=== PATIENT | male | born 1945 | race Caucasian/White ===

== ENCOUNTER 2016-11-02 14:06 | Emergency (ER) | payer OTHER ==
[~2016-11-02] VITALS: Ht 177.8 cm; Wt 77.1 kg
[~2016-11-02 14:06] MED LIST: CHILDREN'S ASPI81 M1 PO; CIPRO 500MG TA500 MG PO; CRESTOR40 M2 PO; FLOMAX0.4 M1 PO; METOPROLOL TART25 M1 PO; MYSOLINE250 M1 PO; NORVASC5 M1 PO; PYRIDIUM200 MG PO
[2016-11-02] MEDS ORDERED: FUROSEMIDE20 M1 PO (15:05)
[2016-11-02] MEDS ORDERED: FINASTERIDE5 M1 PO (15:06)
--- NOTE | 2016-11-02 15:17 | ED HEAD/FACIAL INJ COMPLAINT ---
History of Present Illness General Chief Complaint: Fall Stated Complaint: S/P FALL MERCER Source: patient, family, old records Exam Limitations: no limitations Vital Signs & Intake/Output Vital Signs & Intake/Output Vital Signs Date Time Temp Pulse Resp B/P B/P Pulse O2 O2 Flow FiO2 Mean Ox Delivery Rate 11/02 1418 97.6 60 20 138/74 99 Room Air Allergies Coded Allergies: MDX - Simvastatin (From ZOCOR) (UNKNOWN 03/14/14) Reconcile Medications Amlodipine Besylate (Norvasc) 5 MG TABLET 1 TAB PO DAILY HTN (Reported) Aspirin (Children's Aspirin) 81 MG TAB.CHEW 1 TAB PO DAILY HEART HEALTH ( Reported) Ciprofloxacin HCl (Cipro) 250 MG TABLET 1 TAB PO BID URINARY TRACT INFECTION Finasteride 5 MG TABLET 1 TAB PO DAILY PROSTATE (Reported) Furosemide 20 MG TABLET 1 TAB PO DAILY WATER RETENTION (Reported) Metoprolol Tartrate 25 MG TABLET 1 TAB PO DAILY HTN (Reported) Primidone (Mysoline) 250 MG TABLET 1 TAB PO DAILY ANTICONVULSIVE (Reported) Rosuvastatin Calcium (Crestor) 40 MG TABLET 1 TAB PO DAILY CHOLESTEROL ( Reported) Tamsulosin HCl (Flomax) 0.4 MG CAP.ER.24H 1 CAP PO DAILY PROSTATE (Reported) Triage Note: PT TO ED C/O HEADACHE. PT IS S/P FALL THIS AFTERNOON. 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 + HEADSTRIKE, - LOC. ALSO C/O NECK AND LEFT SHOULDER PAIN. DECLINGING MEDS IN TRIAGE. PT TAKES 81MG ASA DAILY. Triage Nurses Notes Reviewed? yes HPI: Patient states that he was walking to burr picker his phone which was ringing when he lost his balance and fell backwards. Patient hit his head on the ground. There was no loss of consciousness. Patient had a headache that is slowly resolving. The headache is in the occipital area and is throbbing in nature. At its worst it was 7 out of 10 and is currently a 4 out of 10. Patient denies any blurry vision, nausea or vomiting. Patient states that approximately 2 hours after the fall he began to get an ache in his neck. The pain is constant. The pain increases with movement. There is no radiation. He rates that pain as a 3 out of 10. Patient states that he fell 2 weeks ago and landed on his left shoulder. His shoulder pain was getting better but the fall exacerbated today. The pain is sharp in nature. The pain increased with movement of his left arm. There is no radiation. He rates that pain as a 6 out of 10. Past History Travel History Traveled to [place] past 21 day No Medical History Any Pertinent Medical History? see below for history Neurological: CVA Cardiovascular: myocardial infarction, heart valve replacement Surgical History Surgical History: non-contributory Psychosocial History What is your primary language Mongolian Tobacco Use: Never used ETOH Use: denies use Illicit Drug Use: denies illicit drug use Family History Hx Contributory? No Review of Systems Review of Systems Constitutional: Reports: no symptoms. EENTM: Reports: no symptoms. Respiratory: Reports: no symptoms. Cardiovascular: Reports: no symptoms. GI: Reports: no symptoms. Genitourinary: Reports: no symptoms. Musculoskeletal: Reports: see HPI, neck pain. Skin: Reports: no symptoms. Neurological/Psychological: Reports: see HPI, headache. Hematologic/Endocrine: Reports: no symptoms. Immunologic/Allergic: Reports: no symptoms. All Other Systems: Reviewed and Negative Physical Exam Physical Exam General Appearance: well developed/nourished, mild distress Head: ABRASION TO POSTERIOR SCALP Eyes: Bilateral: PERRL, EOMI. Ears, Nose, Throat: normal pharynx, normal ENT inspection, hearing grossly normal Neck: normal inspection, supple Respiratory: normal breath sounds Cardiovascular: regular rate/rhythm Gastrointestinal: soft, non-tender Back: normal inspection Extremities: normal inspection, normal range of motion, no edema Psychiatric: awake, alert, oriented x 3 Cranial Nerves: normal hearing, normal speech, PERRL Skin: intact, normal color, warm/dry Lymphatic: no anterior cervical shirin Progress Differential Diagnosis: c-spine injury, ICH, skull fracture Plan of Care: Orders Procedure Date/time Status Add-on Test (ER Only) 11/02 1630 Active URINALYSIS 11/02 1537 Complete Laboratory Tests 11/02/16 1540: Urine Color YEL, Urine Clarity HAZY H, Urine pH 6.0, Ur Specific Colome 1.010, Urine Protein TRACE H, Urine Ketones NEG, Urine Nitrite NEG, Urine Bilirubin NEG, Urine Urobilinogen 0.2, Ur Leukocyte Esterase LARGE H, Ur Microscopic SEDIMENT EXAMINED, Urine RBC 1-3, Urine WBC 25-50 H, Urine Bacteria MANY H, Urine Hemoglobin SMALL H, Urine Glucose NEG Diagnostic Imaging: Viewed by Me: Radiology Read, CT Scan. Discussed w/RAD: Radiology Read, CT Scan. Radiology Impression: PATIENT: SANDIE PERRY PRESENT AGE: 71 PATIENT ACCOUNT NO: [id number] : 43 LOCATION: [facility] ORDERING PHYSICIAN: ROSIE SAAVEDRA MD SERVICE DATE: 11/02/16 EXAM TYPE: RAD - XRY-SHOULDER COMPLETE-LEFT EXAMINATION: XR SHOULDER, LEFT CLINICAL INFORMATION : Left shoulder pain following fall. COMPARISON: None. TECHNIQUE: AP external rotation, Grashey, scapular Y, and axillary views of the left shoulder. FINDINGS : There is an acute nondisplaced fracture involving the distal left clavicle. The left acromioclavicular joint is intact. No acute fracture or dislocation of the left glenohumeral joint is identified. Glenohumeral and acromioclavicular alignment is anatomic with normal joint space. No abnormal soft tissue calcifications. IMPRESSION: Acute nondisplaced fracture involving the distal left clavicle. The left acromioclavicular joint is intact. No acute fracture or dislocation of the left shoulder. DICTATED BY: JAZ ELAM MD DATE/TIME DICTATED:11/02/161602 CATTLE EXAMINER:MARIBELL DATE/TIME TRANSCRIBED:1602 CONFIDENTIAL, DO NOT COPY WITHOUT APPROPRIATE AUTHORIZATION. < Electronically signed in Other Vendor System> SIGNED BY: JAZ ELAM MD 11/02/16 1615, PATIENT: SANDIE PERRY PRESENT AGE: 71 PATIENT ACCOUNT NO: [id number] : 43 LOCATION: [facility] ORDERING PHYSICIAN: ROSIE SAAVEDRA MD SERVICE DATE: 11/02/16 EXAM TYPE: CAT - CT CERV SPINE WO IV CONTRAST; CT HEAD WO IV CONTRAST EXAM: CT scan of the head and cervical spine. INDICATION: Reason for Study:
: RMN 1
Presumptive Dx: ICH< br>Signs Symptoms: FALL, HEAD INJURY
TECHNIQUE: A noncontrast CT scan was performed from the skull base to the vertex. A noncontrast CT scan of the cervical spine was performed from the base of the skull through T1 at 2.5 mm and 1.25 mm collimation. Coronal and sagittal reformats were obtained at the acquisition workstation. Dose length product is 1009 mGy-cm. COMPARISON: None FINDINGS: Head: There is no evidence of acute intracranial hemorrhage or territorial infarction. Pressley-white matter differentiation is preserved. No abnormal mass effect or midline shift. No extra-axial fluid collections. There is marked cerebellar atrophy diffusely including the cerebellar vermis as well as an old area of encephalization right occipital lobe STENCIL CUTTER territory consistent with an old ischemic insult. Scattered periventricular and deep white matter hypodensities consistent with microangiopathy. The ventricles and sulcal spaces are proportional without hydrocephalus. Proportional prominence of the ventricles and sulcal spaces. No acute osseous or soft tissue abnormalities. The mastoid air cells and visualized portions of the paranasal sinuses are well aerated. Cervical Spine: The atlantooccipital and atlantoaxial articulations remain well aligned. There is moderately severe spondylosis throughout without deformity. Multilevel central canal and neural foraminal stenosis most pronounced on the right at C4-C5 and C5-C6. No evidence of acute fracture or subluxation. There is no prevertebral soft tissue swelling. The thyroid gland and remaining cervical soft tissues are normal in appearance. The lung apices demonstrate no abnormalities. IMPRESSION: No acute intracranial pathology. Marked atrophy and old right STENCIL CUTTER infarct as above. Moderately severe spondylosis without fracture or subluxation. DICTATED BY: FLORA BOX MD DATE/TIME DICTATED: 11/02/161613 CATTLE EXAMINER:MARIBELL DATE/TIME TRANSCRIBED:11/02/161613 CONFIDENTIAL, DO NOT COPY WITHOUT APPROPRIATE AUTHORIZATION. <Electronically signed in Other Vendor System> SIGNED BY: FLORA BOX MD 11/02/16 8348 Departure Departure Disposition: HOME OR SELF CARE Condition: Stable Clinical Impression Primary Impression: Head injury Qualifiers: Encounter type: initial encounter Qualified Code: S09.90XA - Unspecified injury of head, initial encounter Secondary Impressions: Cervical strain Qualifiers: Encounter type: initial encounter Qualified Code: S16.1XXA - Strain of muscle, fascia and tendon at neck level, initial encounter Closed left clavicular fracture Qualifiers: Encounter type: initial encounter Clavicle location: lateral end Fracture alignment: nondisplaced Qualified Code: S42.035A - Nondisplaced fracture of lateral end of left clavicle, initial encounter for closed fracture UTI (urinary tract infection) Qualifiers: Urinary tract infection type: site unspecified Hematuria presence: without hematuria Qualified Code: N39.0 - Urinary tract infection, site not specified Referrals: RAFAEL ARANGO,MARIA LUISA Torres (PCP/Family) YOHANA ARANGO,EUNICE Additional Instructions: TAKE CIPRO DIRECTED FOLLOW UP WITH DR. MULLER FROM ORTHOPEDICS RETURN FOR ANY CONCERNS Departure Forms: Customer Survey General Discharge Information Prescriptions: Current Visit Scripts Ciprofloxacin HCl (Cipro) 1 TAB PO BID #14 TAB
--- NOTE | 2016-11-02 16:15 | RADIOLOGY REPORT ---
EXAMINATION: XR SHOULDER, LEFT CLINICAL INFORMATION: Left shoulder pain following fall. COMPARISON: None. TECHNIQUE: AP external rotation, Grashey, scapular Y, and axillary views of the left shoulder. FINDINGS: There is an acute nondisplaced fracture involving the distal left clavicle. The left acromioclavicular joint is intact. No acute fracture or dislocation of the left glenohumeral joint is identified. Glenohumeral and acromioclavicular alignment is anatomic with normal joint space. No abnormal soft tissue calcifications. IMPRESSION: Acute nondisplaced fracture involving the distal left clavicle. The left acromioclavicular joint is intact. No acute fracture or dislocation of the left shoulder.
--- NOTE | 2016-11-02 16:28 | CT SCAN REPORT ---
EXAM: CT scan of the head and cervical spine. INDICATION: Reason for Study:
: RMN 1
Presumptive Dx: ICH
Signs Symptoms: FALL, HEAD INJURY
TECHNIQUE: A noncontrast CT scan was performed from the skull base to the vertex. A noncontrast CT scan of the cervical spine was performed from the base of the skull through T1 at 2.5 mm and 1.25 mm collimation. Coronal and sagittal reformats were obtained at the acquisition workstation. Dose length product is 1009 mGy-cm. COMPARISON: None FINDINGS: Head: There is no evidence of acute intracranial hemorrhage or territorial infarction. Pressley-white matter differentiation is preserved. No abnormal mass effect or midline shift. No extra-axial fluid collections. There is marked cerebellar atrophy diffusely including the cerebellar vermis as well as an old area of encephalization right occipital lobe NANOTECHNOLOGY ENGINEERING TECHNICIAN territory consistent with an old ischemic insult. Scattered periventricular and deep white matter hypodensities consistent with microangiopathy. The ventricles and sulcal spaces are proportional without hydrocephalus. Proportional prominence of the ventricles and sulcal spaces. No acute osseous or soft tissue abnormalities. The mastoid air cells and visualized portions of the paranasal sinuses are well aerated. Cervical Spine: The atlantooccipital and atlantoaxial articulations remain well aligned. There is moderately severe spondylosis throughout without deformity. Multilevel central canal and neural foraminal stenosis most pronounced on the right at C4-C5 and C5-C6. No evidence of acute fracture or subluxation. There is no prevertebral soft tissue swelling. The thyroid gland and remaining cervical soft tissues are normal in appearance. The lung apices demonstrate no abnormalities. IMPRESSION: No acute intracranial pathology. Marked atrophy and old right NANOTECHNOLOGY ENGINEERING TECHNICIAN infarct as above. Moderately severe spondylosis without fracture or subluxation.
[2016-11-02] MEDS ORDERED: CIPRO250 M1 PO (16:44)
[2016-11-02 17:17] VITALS: BP 122/70
== END 2016-11-02 17:18 ==
LOC: ERH 14:06
DX: S42.002A Fracture of unspecified part of left clavicle, initial encounter for closed fracture (principal); S16.1XXA Strain of muscle, fascia and tendon at neck level, initial encounter; S09.90XA Unspecified injury of head, initial encounter; N39.0 Urinary tract infection, site not specified; W19.XXXA Unspecified fall, initial encounter; Y92.9 Unspecified place or not applicable; Y93.9 Activity, unspecified
CPT/HCPCS: 73030-LT; 81001; 87086